=== PATIENT | female | born 1960 | race Caucasian/White ===

== ENCOUNTER 2020-03-05 16:30 | Outpatient (REF) | payer BC, SELFPAY ==
[2020-03-07 20:32] LABS: COVID-19 RT-PCR Result NEGATIVE (Negative)
== END 2020-03-05 16:50 ==
LOC: NCHCN 16:30
PROVIDERS: PCP Internal Medicine; Visit Provider Family Medicine
DX: R05 Cough (principal); Z20.828 Contact with and (suspected) exposure to other viral communicable diseases
CPT/HCPCS: U0003

== ENCOUNTER 2020-05-10 21:21 | Outpatient (REF) | payer SELFPAY ==
[2020-05-12 15:38] LABS: Patient Race White; SARS-CoV-2 RNA Undetected (Undetected); SARS-CoV-2 Specimen Source Nasal
== END 2020-05-10 21:41 ==
LOC: NCHCN 21:21
PROVIDERS: PCP Internal Medicine; Visit Provider Nurse Practitioner Family
DX: Z11.59 Encounter for screening for other viral diseases (principal)
CPT/HCPCS: U0003

== ENCOUNTER 2024-10-16 08:25 | Outpatient (REF) | payer OTHER, SELFPAY ==
[2024-10-16 19:36] LABS: ALT 36 U/L (14-59); AST 29 U/L (15-37); Alkaline Phosphatase 91 U/L (46-116); Anion Gap 7.4 mmol/L (3-11); BUN 15 mg/dL (7-18); Bilirubin, Total 0.7 mg/dL (0.2-1.0); CO2 27.6 mmol/L (21.0-32.0); CREATININE 0.9 mg/dL (0.55-1.02); Calcium 9.7 mg/dL (8.5-10.1); Calculated LDL 194 mg/dL (<100); Chloride 102 mmol/L (98-107); Cholesterol 298 mg/dL (<200); Estimated GFR 71.83 (mL/min/1.73m2); Glucose 130 mg/dL (74-106); HDL Cholesterol 81 mg/dL (>or=50); Potassium 4.3 mmol/L (3.5-5.1); Sodium 137 mmol/L (136-145); Triglyceride 116 mg/dL (<150)
[2024-10-20 11:06] LABS: Hepatitis C Ab w Rflx HCV PCR Negative (Negative)
[2024-10-20 11:36] LABS: HIV-1/2 Ag & Ab Screen Negative (Negative)
== END 2024-10-16 08:26 | disposition home or self-care (01) ==
LOC: NCHCN 08:25
PROVIDERS: PCP Internal Medicine; Visit Provider Nurse Practitioner Family
DX: E78.5 Hyperlipidemia, unspecified (principal)
CPT/HCPCS: 80053; 80061; 86803; 87389

== ENCOUNTER 2025-04-16 10:01 | Outpatient (REF) | payer OTHER, SELFPAY ==
[2025-04-16 19:52] LABS: Hemoglobin A1C 5.5 % (<5.7)
[2025-04-16 19:56] LABS: ALT 36 U/L (14-59); AST 20 U/L (15-37); Albumin 4.0 g/dL (3.4-5.0); Alkaline Phosphatase 90 U/L (46-116); Anion Gap 7.8 mmol/L (3-11); BUN 16 mg/dL (7-18); Bilirubin, Total 0.7 mg/dL (0.2-1.0); CO2 29.2 mmol/L (21.0-32.0); Calcium 9.2 mg/dL (8.5-10.1); Chloride 102 mmol/L (98-107); Cholesterol 243 mg/dL (<200); Glucose 91 mg/dL (74-106); HDL Cholesterol 73 mg/dL (>or=50); Potassium 4.5 mmol/L (3.5-5.1); Sodium 139 mmol/L (136-145); Total Protein 8.0 g/dL (6.4-8.2)
== END 2025-04-16 10:02 | disposition home or self-care (01) ==
LOC: NCHCN 10:01
PROVIDERS: PCP Internal Medicine; Visit Provider Nurse Practitioner Family
DX: E78.5 Hyperlipidemia, unspecified (principal); R73.03 Prediabetes
CPT/HCPCS: 80053; 80061; 83036